=== PATIENT | male | born 2000 | race Two or more races ===

== ENCOUNTER 2022-06-24 14:23 | Emergency (ER) | payer MEDICAID, SELFPAY ==
--- NOTE | ~2022-06-24 | XR_ITS ---
EXAMINATION: XR CHEST CLINICAL INFORMATION: Chest pain. Shortness of breath. COMPARISON: None TECHNIQUE: 2 views of the chest were obtained. FINDINGS: No significant abnormality is noted involving the heart, lungs, mediastinum, bony thorax or soft tissues. XR/XR chest 2V IMPRESSION: Unremarkable examination.
[2022-06-24 14:25] VITALS: BP 127/77; PULSE 72; RESP 18; TEMP 37.1; O2SAT 99; BMI 24.2
--- NOTE | 2022-06-24 14:26 | ED_ITS ---
HPI - Chest Pain General Chief Complaint: Chest Pain Stated Complaint: Eye inj/L chest pain Time Seen by Provider: 06/24/22 16:18 Source: patient Mode of arrival: ambulatory Limitations: no limitations History of Present Illness HPI narrative: Patient is a 22 year old male coming to the ED Complaining of left anterior chest pain, intermittently, lasting a few minutes, and self resolves, associated shortness of breath I cant breath regularly . He states sometimes it is worse at night, and after eating. Denies fevers, chills, cough, nausea, vomiting, ABD pain. Reports history of acid reflux all the time doesn't take anything for this. Reports history of ADHD and anxiety, has attributed the pain to this, but today the pain was worse than what it has been in the past. Pain has been ongoing for approximately 1 month. Also he is requesting a referral to an renewable energy technician, has not seen on in greater than 1 year, retired, wants to establish care, advised to contact his insurance carrier to determine in-network coverage. Related Data Previous Rx's Medication Instructions Recorded aluminum-mag hydroxide-simethicone 10 ml PO QID PRN indigestion #355 06/24/22 200 mg-200 mg-20 mg/5 mL oral susp mL (Maalox Advanced) omeprazole 20 mg capsule,delayed 20 mg PO DAILY #14 caps 06/24/22 release Allergies Allergy/AdvReac Type Severity Reaction Status Date / Time No Known Allergies Allergy Verified 06/24/22 14:29 Review of Systems Review of Systems: Pertinent positives and negatives as noted in HPI Yes all other systems are reviewed and are negative PMFSH Past Medical History Attestation statement: The following information was validated with the patient. Source: old records reviewed Social History Social History Smoked in Last 30 Days: Yes Use of substances other than those prescribed or required for medical reasons: Yes Substance Use Type: Marijuana Advance Directives: No Advance Directives Information Provided: No Physical Exam Vital Signs: Vital Signs: Last Vital Signs Temp 98.7 F 06/24/22 14:25 Pulse 72 06/24/22 14:25 Resp 18 06/24/22 14:25 BP 127/77 06/24/22 14:25 Pulse Ox 99 06/24/22 14:25 O2 Del Method 06/24/22 14:25 BMI result Body Mass Index 24.2 Appearance: Alert.?Oriented to person, place and time. No acute dist ress.?Normal affect. Eyes: Pupils equal, round and reactive to light.? ENT: Pharynx normal.?? Neck: Normal inspection.? Neck supple.?? CVS: Heart sounds normal. Normal heart rate and rhythm.? Pulses normal.?? Respiratory: No respiratory distress.? Lung sounds clear to auscultation bilaterally?? Abdomen: Soft and non-tender. Normoactive bowel sounds. No pulsatile mass.?? Skin: Skin warm and dry.? Normal skin color.? Normal skin turgor.?? Extremities: No lower extremity edema.? No calf ttp? Neuro: Moves all extremities spontaneously. Sensation intact bilaterally. CN II- XII intact. No focal neuro deficits. Ambulates with normal steady gait. Course Reevaluation(s) Reevaluation #1: Troponin below detectable limits, EKG revealing normal sinus rhythm without acute ischemic findings. Chest x-ray without acute cardiopulmonary process, viral testing is negative. Cbc and CMP are overall unremarkable. Lipase within normal limits. Patient expressing relief of pain after receiving GI cocktail. We discussed at this time potential of symptoms in relation to gastritis/undertreated acid reflux, in addition to anxiety. Patient encouraged to establish care with a primary care provider, for further treatment should his symptoms persist. We discussed worrisome signs and symptoms that would warrant re-evaluation in the emergency department. I sent a prescription for omeprazole in addition to Maalox to patient's pharmacy, we reviewed dietary management of acid reflux, and precautions to take to decrease dyspepsia. All questions answered. Departed in stable condition. Time: 16:32 Medications Administered Discontinued Medications Generic Name Dose Route Start Last Admin Trade Name Della PRN Reason Stop Dose Admin Al Hydroxide/Mg Hydroxide 30 ml 06/24/22 14:29 06/24/22 14:39 Magnesium Hydrox/Alum Hydrox 30 Ml Oral.Susp PO 06/24/22 14:30 30 ml ONCE ONE Administration Famotidine 20 mg 06/24/22 14:29 06/24/22 14:39 Famotidine 20 Mg Tablet PO 06/24/22 14:30 20 mg ONCE ONE Administration Lidocaine HCl 15 ml 06/24/22 14:29 06/24/22 14:39 Lidocaine Hcl Viscous 2 % 15 Ml Solution MUCOUS MEM 06/24/22 14:30 15 ml ONCE ONE Administration Medical Decision Making Medical Decision Making [facility] Narrative: Patient is a 22-year-old male with past medical history of anxiety, ADHD presenting to emergency department for evaluation of chest pain as noted in HPI. At the time of examination he is overall well-appearing. Vital signs are stable, without tachycardia, tachypnea, or hypoxia. No risk factors for ACS, have a low suspicion for this, PERC negative unlikely pulmonary embolism. Symptoms may be of viral etiology, upper respiratory infection will obtain CO VID-19/influenza testing, plan to obtain chest x-ray to evaluate for consolidation/infiltrate which may indicated pneumonia, though given duration of symptoms, and history with normal physical examination, LS CTA this is less likely. Self-reported acid reflux is not currently treated, gastritis/PUD or additionally possible. Although he is not reporting any bloody emesis/gastric secretions. Patient to receive famotidine, Maalox with lidocaine, and will re- evaluate for response. We did alternatively discuss that periods of high anxiety can also cause chest pain similar to what he is experiencing, but rather this is a relation of exclusion. Differential Diagnosis Differential Diagnoses: The differential diagnosis associated with the presentation includes (As noted above) Lab Data [facility] Lab Attestation statement: I reviewed the patient's lab results. 06/24/22 15:07 06/24/22 15:07 Labs: Lab Results 06/24/22 06/24/22 06/24/22 Range/Units 15:07 15:07 15:07 WBC 6.4 (4.8-10.8) X10*3/uL RBC 5.44 (4.60-5.80) X10*6/uL Hgb 14.0 (14.0-18.0) g/dl Hct 43.2 (42.0-52.0) % MCV 79.4 L (80.0-98.0) fL MCH 25.7 L (27.0-33.0) pg MCHC 32.4 (31.0-36.0) g/dl RDW 13.3 (11.0-16.0) % Plt Count 312 (160-400) X10*3/uL MPV 9.4 (9.4-12.4) fL Immature Gran % (Auto) 0.6 H (0.0-0.4) % Neut % (Auto) 60.0 (45-73) % Lymph % (Auto) 30.6 (20-40) % [place] % (Auto) 7.8 (2-11) % Eos % (Auto) 0.5 (0-4) % Baso % (Auto) 0.5 (0-2) % Lymph # (Auto) 2.0 (1.2-4.9) X10*3/uL [place] # (Auto) 0.5 (0.1-1.2) X10*3/uL Eos # (Auto) 0.0 (0.0-0.4) X10*3/uL Baso # (Auto) 0.0 (0.0-0.2) X10*3/uL Abs Immat Gran (auto) 0.04 H (0.00-0.03) X10*3/uL Absolute Neuts (auto) 3.9 (2.0-8.3) x10*3/uL Absolute Nucleated RBC 0.000 (0.0-0.012) X10*3/uL Nucleated RBC % (auto) 0.0 (0.0-0.2) /100WBC Sodium 142 (135-145) mmol/L Potassium 3.6 (3.3-5.1) mmol/L Chloride 109 H (96-108) mmol/L Carbon Dioxide 26 (22-29) mmol/L Anion Gap 11 L (12-20) BUN 15 (9-16) mg/dL Creatinine 0.84 (0.5-1.4) mg/dL Estim Creat Clear Calc 126.5 Estimated GFR > 60 Random Glucose 106 (60-115) mg/dL Calcium 9.4 (8.4-10.2) mg/dL Total Bilirubin 0.4 (0.0-1.0) mg/dL AST 14 (5-37) U/L ALT 21 (0-40) U/L Alkaline Phosphatase 103 (39-117) U/L Troponin I High Sens (<3.5-35.0) ng/L Total Protein 6.7 (6.5-8.0) g/dL Albumin 4.5 (3.5-5.0) g/dL Lipase 71 (8-78) U/L COVID-19 (MARLO) Negative (Negative) COVID-19 Clin Com See Note Influenza Type A (YUMIKO) (Negative) Influenza Type B (YUMIKO) (Negative) Influenza A & B Note 06/24/22 06/24/22 Range/Units 15:07 15:07 WBC (4.8-10.8) X10*3/uL RBC (4.60-5.80) X10*6/uL Hgb (14.0-18.0) g/dl Hct (42.0-52.0) % MCV (80.0-98.0) fL MCH (27.0-33.0) pg MCHC (31.0-36.0) g/dl RDW (11.0-16.0) % Plt Count (160-400) X10*3/uL MPV (9.4-12.4) fL Immature Gran % (Auto) (0.0-0.4) % Neut % (Auto) (45-73) % Lymph % (Auto) (20-40) % [place] % (Auto) (2-11) % Eos % (Auto) (0-4) % Baso % (Auto) (0-2) % Lymph # (Auto) (1.2-4.9) X10*3/uL [place] # (Auto) (0.1-1.2) X10*3/uL Eos # (Auto) (0.0-0.4) X10*3/uL Baso # (Auto) (0.0-0.2) X10*3/uL Abs Immat Gran (auto) (0.00-0.03) X10*3/uL Absolute Neuts (auto) (2.0-8.3) x10*3/uL Absolute Nucleated RBC (0.0-0.012) X10*3/uL Nucleated RBC % (auto) (0.0-0.2) /100WBC Sodium (135-145) mmol/L Potassium (3.3-5.1) mmol/L Chloride (96-108) mmol/L Carbon Dioxide (22-29) mmol/L Anion Gap (12-20) BUN (9-16) mg/dL Creatinine (0.5-1.4) mg/dL Estim Creat Clear Calc Estimated GFR Random Glucose (60-115) mg/dL Calcium (8.4-10.2) mg/dL Total Bilirubin (0.0-1.0) mg/dL AST (5-37) U/L ALT (0-40) U/L Alkaline Phosphatase (39-117) U/L Troponin I High Sens < 3.5 (<3.5-35.0) ng/L Total Protein (6.5-8.0) g/dL Albumin (3.5-5.0) g/dL Lipase (8-78) U/L COVID-19 (MARLO) (Negative) COVID-19 Clin Com Influenza Type A (YUMIKO) Negative (Negative) Influenza Type B (YUMIKO) Negative (Negative) Influenza A & B Note See Note Independent Interpretation I performed an independent interpretation of an: EKG and Plain X-Ray (I have personally interpreted chest x-ray and agree with radiologist impression.) Interpretation: Rate: 65 Rhythm:? Normal sinus rhythm with arrhythmia Normal P waves.? Normal ALONDRA.?? Normal QRS complex.?? ST T wave :??No ST elevation, ST depression, no T-wave inversion qTC: 378 prior studies:? None available for review The study has been interpreted contemporaneously by me. Radiology Impression Discussion of test interpretation with radiology: I have reviewed the radiologist's reading. Radiologist Impression: XR/XR chest 2V IMPRESSION: Unremarkable examination. Prescription Management I considered prescription management with: Other (Antacid medication) Discharge Plan Discharge Clinical Impression: Chest pain Patient Disposition: Home, Self-Care Instructions: Chest Pain (ED) Additional Instructions: As we discussed, your blood work, EKG, and chest x-ray were all very reassuring today. Your testing for COVID-19 and flu were negative. You received medication here today to help with acid reflux, and you reported that your symptoms did feel better after taking this medication. Avoid triggers such as fatty foods, spicy foods, tomatoes, onions, coffee, tea, chocolate, and alcohol. Remaining upright after meals for 1-2 hours. Avoid eating at least 3 hours before bedtime. Try sleeping on an incline if possible. Although, we did discuss that periods of high anxiety can also cause individuals to experienced chest pain. It is recommended that you establish care with a primary care provider to arrange for further follow-up. Prescriptions for antacid medication have been sent to your pharmacy, please use these as prescribed. You may return back to emergency department with any new or worsening symptoms or concerns. Prescriptions: New omeprazole 20 mg capsule,delayed release(DR/EC) 20 mg PO DAILY Qty: 14 0RF alum-mag hydroxide-simeth [Maalox Advanced] 200-200-20 mg/5 mL suspension 10 ml PO QID PRN (Reason: indigestion) Qty: 355 0RF Rx Instructions: administer between meals and at bedtime Referrals: Physician,None [Primary Care Provider] - Stand Alone Forms: Work/School Release Discharge Date/Time: 06/24/22 16:28
--- NOTE | 2022-06-24 14:31 | ECG_ITS ---
Test Reason : cx pain Blood Pressure : / mmHG Vent. Rate : 065 BPM Atrial Rate : 065 BPM P-R Int : 126 ms QRS Dur : 090 ms QT Int : 364 ms P-R-T Axes : 060 067 053 degrees QTc Int : 378 ms Normal sinus rhythm with sinus arrhythmia Normal ECG No previous ECGs available Referred By: Kathy Guallpa Electronically Signed By:Carloz Brock
[2022-06-24] MEDS: Lidocaine HCl Viscous 2 % 15 ML SOLUTION MUCOUS MEM (14:39)
[2022-06-24] MEDS: Magnesium Hydrox/Alum Hydrox 30 ML ORAL.SUSP PO (14:39)
[2022-06-24] MEDS: Famotidine 20 MG TABLET PO (14:39)
[2022-06-24 15:15] LABS: MANUAL DIFF FLAG NO
[2022-06-24 15:16] LABS: Basophils Percent Auto 0.5 % (0-2); Eosinophils Percent Auto 0.5 % (0-4); Hematocrit 43.2 % (42.0-52.0); Imm Gran Abs Auto 0.04 X10*3/uL (0.00-0.03); Imm Gran Pct Auto 0.6 % (0.0-0.4); Lymphocytes Percent Auto 30.6 % (20-40); Mean Corpuscular HGB Conc 32.4 g/dl (31.0-36.0); Mean Corpuscular Hemoglobin 25.7 pg (27.0-33.0); Mean Corpuscular Volume 79.4 fL (80.0-98.0); Mean Platelet Volume 9.4 fL (9.4-12.4); Monocytes Absolute Auto 0.5 X10*3/uL (0.1-1.2); Monocytes Percent Auto 7.8 % (2-11); Neutrophils Absolute Auto 3.9 x10*3/uL (2.0-8.3); Platelet Count 312 X10*3/uL (160-400); Red Blood Count 5.44 X10*6/uL (4.60-5.80); Red Cell Distribution Width 13.3 % (11.0-16.0); White Blood Count 6.4 X10*3/uL (4.8-10.8)
[2022-06-24 15:29] LABS: Alanine Aminotransferase 21 U/L (0-40); Albumin Level 4.5 g/dL (3.5-5.0); Alkaline Phosphatase 103 U/L (39-117); Anion Gap 11 (12-20); Aspartate Amino Transferase 14 U/L (5-37); Bilirubin Total 0.4 mg/dL (0.0-1.0); Blood Urea Nitrogen 15 mg/dL (9-16); Calcium 9.4 mg/dL (8.4-10.2); Carbon Dioxide 26 mmol/L (22-29); Chloride 109 mmol/L (96-108); Creatinine Clr Calc Pharmacy 126.5; Estimated Glomerular Filt Rate > 60; Glucose Random 106 mg/dL (60-115); Lipase 71 U/L (8-78); Potassium 3.6 mmol/L (3.3-5.1); Sodium 142 mmol/L (135-145); Total Protein 6.7 g/dL (6.5-8.0)
[2022-06-24 15:35] LABS: Troponin-I High Sensitivity < 3.5 ng/L (<3.5-35.0)
[2022-06-24 15:41] LABS: COVID-19 Test Negative (Negative); IDNOW Serial# 16C4AD1C; IDNOW Serial# BCCEAD1C; Influenza A Negative (Negative); Influenza B2 Negative (Negative)
[2022-06-24 16:20] VITALS: BP 115/54; PULSE 64; RESP 18; O2SAT 98
== END 2022-06-24 16:28 | disposition home or self-care (01) ==
PROVIDERS: Nurse Practitioner Family; Emergency Provider Student in an Organized Health Care Education/Training Program
DX: R07.89 Other chest pain (principal); Z79.899 Other long term (current) drug therapy; Z20.822 Contact with and (suspected) exposure to COVID-19; Z20.828 Contact with and (suspected) exposure to other viral communicable diseases
CPT/HCPCS: 71046; 80053; 83690; 84484; 85025; 87502; 87635; 93005; 99283; 99284